=== PATIENT | female | born 1930 | race African-American/Black ===

== ENCOUNTER 2017-01-08 06:15 | Emergency (ER) | payer OTHER, BC ==
[2017-01-08 06:25] VITALS: TEMP 98.2; BMI 31.2
--- NOTE | 2017-01-08 07:34 | PDOC ---
History of Present Illness - General History Source: Patient Exam Limitations: No Limitations - History of Present Illness Initial Comments: 01/08/17 07:44 The patient is a 86 year old female with significant past medical history of hypertension, hyperlipidemia, arthritis, GERD, and achalasia who presents to the ED with 1 day of right flank pain. Patient reports she recently injured her right foot sustaining some swelling and pain to the area, which has now resolved. Subsequently, she developed pain to the right flank region and became concern if the two symptoms are related to each other. She took tylenol a few hours prior to arrival with no improvement. Patient denies fever, dysuria, hematuria, urgency, and frequency. She also denies any trauma to the area. She reports some nausea and one episode of vomiting last night. The patient denies chills, cough, SOB, chest pain, abdominal pain, and diarrhea. Allergies: Penicillins Social History: No alcohol, tobacco, or drug use reported. Past Surgical History: Achalasia ( esophageal dilatation) Left hip ORIF, right knee ORIF s/p comminuted fracture, Cholecystectomy, hysterectomy, appendectomy PCP: Dr. Ananda Archer <Meagan Gillespie - Last Filed: 01/08/17 10:36> <Jyothi Hardin - Last Filed: 01/08/17 20:28> - General Chief Complaint: Pain Stated Complaint: PAIN,RT SIDE Time Seen by Provider: 01/08/17 07:19 Past History <Meagan Gillespie - Last Filed: 01/08/17 10:36> - Past Medical History Anemia: No Asthma: No Cancer: No Cardiac Disorders: No CVA: No COPD: No CHF: No GI Disorders: Yes (echalasia; gerd) Disorders: No HTN: Yes Hypercholesterolemia: Yes Liver Disease: No Seizures: No Thyroid Disease: No - Surgical History Abdominal Surgery: No Appendectomy: No Cardiac Surgery: No Cholecystectomy: Yes Lung Surgery: No Neurologic Surgery: No Orthopedic Surgery: Yes - Psycho/Social/Smoking Cessation Hx Anxiety: No Suicidal Ideation: No Smoking Status: No Smoking History: Never smoked Have you smoked in the past 12 months: No Number of Cigarettes Smoked Daily: 0 If you are a former smoker, when did you quit?: 1969 Information on smoking cessation initiated: No Hx Alcohol Use: No Drug/Substance Use Hx: No Substance Use Type: None <Jyothi Hardin - Last Filed: 01/08/17 20:28> - Past Medical History Allergies/Adverse Reactions: Allergies Allergy/AdvReac Type Severity Reaction Status Date / Time Penicillins Allergy Severe Verified 01/08/17 06:24 Home Medications: Ambulatory Orders Atorvastatin Ca [Lipitor] 40 mg PO HS 12/15/15 Diclofenac Sodium/Misoprostol [Diclofenac-Misoprost 75-200 Tb] 1 each PO DAILY 12/15/15 Hydrochlorothiazide 0 mg PO DAILY 12/15/15 Losartan Potassium 100 mg PO DAILY 12/15/15 Buspirone HCl [Buspar -] 5 mg PO BID 01/08/17 Methocarbamol [Robaxin -] 500 mg PO BID PRN #14 tablet 01/08/17 Review of Systems - Review of Systems Able to Perform ROS?: Yes Comments:: 01/08/17 07:44 GENERAL/CONSTITUTIONAL: No fever or chills. No weakness. HEAD, EYES, EARS, NOSE AND THROAT: No change in vision. No ear pain or discharge. No sore throat. CARDIOVASCULAR: No chest pain or shortness of breath. RESPIRATORY: No cough, wheezing, or hemoptysis. GASTROINTESTINAL: +nausea, vomiting No diarrhea or constipation. GENITOURINARY: +right flank pain No dysuria, frequency, or change in urination. MUSCULOSKELETAL: No joint or muscle swelling or pain. No neck pain. SKIN: No rash NEUROLOGIC: No headache, vertigo, loss of consciousness, or change in strength/ sensation. <Meagan Gillespie - Last Filed: 01/08/17 10:36> *Physical Exam - Vital Signs Last Vital Signs Temp Pulse Resp BP Pulse Ox 98.2 F 79 20 179/100 98 01/08/17 06:24 01/08/17 06:24 01/08/17 06:24 01/08/17 06:24 01/08/17 06:24 - Physical Exam Comments: 01/08/17 07:44 GENERAL: Awake, alert, and fully oriented, in no acute distress HEAD: No signs of trauma EYES: PERRLA, EOMI, sclera anicteric, conjunctiva clear ENT: Auricles normal inspection, hearing grossly normal, nares patent, oropharynx clear without exudates. Moist mucosa NECK: Normal ROM, supple, no lymphadenopathy, JVD, or masses LUNGS: Breath sounds equal, clear to auscultation bilaterally. No wheezes, and no crackles HEART: Regular rate and rhythm, normal S1 and S2, no murmurs, rubs or gallops ABDOMEN: Soft, nontender, normoactive bowel sounds. No guarding, no rebound. No masses EXTREMITIES: Normal range of motion, no edema. No clubbing or cyanosis. No cords, erythema, or tenderness MUSCULOSKELETAL: Mild right flank tenderness NEUROLOGICAL: Cranial nerves II through XII grossly intact. Normal speech SKIN: Warm, Dry, normal turgor, no rashes or lesions noted. Mild ecchymosis at the first MTP joint. <Meagan Gillespie - Last Filed: 01/08/17 10:36> - Vital Signs Last Vital Signs Temp Pulse Resp BP Pulse Ox 98.2 F 79 20 179/100 98 01/08/17 06:24 01/08/17 06:24 01/08/17 06:24 01/08/17 06:24 01/08/17 06:24 <Jyothi Hardin - Last Filed: 01/08/17 20:28> ED Treatment Course - LABORATORY CBC & Chemistry Diagram: 01/08/17 07:40 01/08/17 07:40 <Meagan Gillespie - Last Filed: 01/08/17 10:36> - LABORATORY CBC & Chemistry Diagram: 01/08/17 07:40 01/08/17 07:40 <Jyothi Hardin - Last Filed: 01/08/17 20:28> Medical Decision Making - Medical Decision Making CT results reviewed with patient. No acute findings. Counseled her to return to ED if pain continues, worsens, or if any additional symptoms. <Jyothi Hardin - Last Filed: 01/08/17 20:28> *DC/Admit/Observation/Transfer - Attestations Scribe Attestion: 01/08/17 07:44 Documentation prepared by Meagan Gillespie, acting as medical supply technician for Jyothi Hardin MD, MD <Meagan Gillespie - Last Filed: 01/08/17 10:36> - Discharge Dispostion Admit: No <Jyothi Hardin - Last Filed: 01/08/17 20:28> Diagnosis at time of Disposition: Abdominal pain Qualifiers: Abdominal location: unspecified location Qualified Code(s): R10.9 - Unspecified abdominal pain - Discharge Dispostion Disposition: HOME Condition at time of disposition: Stable - Prescriptions Prescriptions: Methocarbamol [Robaxin -] 500 mg PO BID PRN #14 tablet PRN Reason: Muscle Spasms - Referrals Referrals: Ananda Archer MD [Primary Care Provider] - - Patient Instructions Printed Discharge Instructions: DI for Abdominal Pain-Adult Additional Instructions: RETURN TO THE ER FOR WORSENING PAIN, PERSISTENT PAIN, OR IF YOU DEVELOP VOMITING , DIARRHEA, FEVER, OR ANY OTHER CONCERNS.
[2017-01-08] MEDS ORDERED: KETOROLAC TROMETHAMINE 15 MG/ML VIAL IVPUSH ONE (07:36)
[2017-01-08] MEDS ORDERED: SODIUM CHLORIDE 1,000 ML IV STA (07:36)
[2017-01-08] MEDS ORDERED: KETOROLAC TROMETHAMINE 15 MG/ML VIAL ONE (07:42)
[2017-01-08 07:49] LABS: BASOPHIL 0.9 % (0-2.0); EOSINOPHIL 4.5 % (0-4.5); MCH 30.9 pg (25.7-33.7); MCHC 33.5 g/dl (32.0-36.0); MEAN CELL VOLUME 92.1 fl (80-96); MEAN PLT VOLUME 9.4 fl (7.5-11.1); NEUTROPHILS 70.1 % (42.8-82.8); PLATELET COUNT 208 K/MM3 (134-434); RDW 13.2 % (11.6-15.6); WHITE BLOOD COUNT 7.9 K/mm3 (4.0-10.0)
[2017-01-08 08:15] LABS: ALBUMIN 3.4 g/dl (3.4-5.0); BILIRUBIN,TOTAL 0.6 mg/dL (0.2-1.0); CALCIUM 9.1 mg/dL (8.5-10.1); CREATININE 1.1 mg/dL (0.55-1.02)
[2017-01-08 08:34] LABS: URINE APPEARANCE CLEAR; URINE BILIRUBIN NEGATIVE (NEGATIVE); URINE COLOR LTYELLOW; URINE GLUCOSE (UA) NEGATIVE (NEGATIVE); URINE KETONE NEGATIVE (NEGATIVE); URINE LEUK ESTERASE NEGATIVE (NEGATIVE); URINE NITRITE NEGATIVE (NEGATIVE); URINE PROTEIN NEGATIVE (NEGATIVE); URINE UROBILINOGEN NEGATIVE E.U./dl (0.2-1.0)
[2017-01-08 08:57] LABS: URINE BLOOD 1+ (NEGATIVE)
[2017-01-08 08:59] LABS: URINE HYALINE CAST 20 /lpf; URINE MUCUS RARE; URINE RBC 6 /hpf (0-3); URINE WBC 2 /hpf (3-5)
[2017-01-08] MEDS ORDERED: morphine CARPU-JECT 2 MG/1 ML DISP.SYRIN ONE (09:32)
[2017-01-08] MEDS ORDERED: morphine CARPU-JECT 2 MG/1 ML DISP.SYRIN IVPUSH ONE (09:33)
[2017-01-08] MEDS ORDERED: ONDANSETRON 4 MG/2 ML VIAL ONE (09:37)
[2017-01-08] MEDS ORDERED: ONDANSETRON 4 MG/2 ML VIAL IVPUSH ONE (09:54)
[2017-01-08] MEDS ORDERED: METHOCARBAMOL 500 MG TABLET PO ONE (11:29)
[2017-01-08] MEDS ORDERED: METHOCARBAMOL 500 MG TABLET ONE (11:32)
[2017-01-08 11:41] VITALS: BP 140/63; PULSE 70
== END 2017-01-08 11:41 | disposition home or self-care (01) ==
LOC: JER 06:15
PROC: 3E0337Z Introduction of Electrolytic and Water Balance Substance into Peripheral Vein, Percutaneous Approach (ICD-10-PCS; principal; 2017-01-08)
PROC: 3E033NZ Introduction of Analgesics, Hypnotics, Sedatives into Peripheral Vein, Percutaneous Approach (ICD-10-PCS; 2017-01-08)
PROC: 3E033GC Introduction of Other Therapeutic Substance into Peripheral Vein, Percutaneous Approach (ICD-10-PCS; 2017-01-08)
DX: R10.9 Unspecified abdominal pain (principal); I10 Essential (primary) hypertension; E78.00 Pure hypercholesterolemia, unspecified; K21.9 Gastro-esophageal reflux disease without esophagitis; M12.9 Arthropathy, unspecified
CPT/HCPCS: 36415; 74176; 80053; 81003; 81015; 83690; 85025; 96361; 96374; 96375; 99284-25

== ENCOUNTER 2017-06-18 14:07 | Emergency (ER) | payer OTHER, BC ==
[2017-06-18 14:14] VITALS: TEMP 98.6; BMI 31.2
[2017-06-18 15:07] VITALS: BP 158/92; PULSE 76
--- NOTE | 2017-06-18 15:14 | PDOC ---
History of Present Illness - General Chief Complaint: Blood Pressure Problem Stated Complaint: HIGH BLOOD PRESSURE Time Seen by Provider: 06/18/17 14:25 - History of Present Illness Initial Comments: 06/18/17 15:04 CHIEF COMPLAINT: blood pressure HISTORY OF PRESENT ILLNESS: 87 yo F with past medical history of hypertension, hyperlipidemia, arthritis, GERD, and achalasia presents to fast track with concerns of elevated blood pressure earlier today. Patient states when she took her BP at home this morning it was in the 192/87, so she decided to come to the emergency room. She denies having any symptoms, including chest pain, shortness of breath, weakness, abdominal pain, headache, dizziness, leg swelling , or palpitations. She states that "I think I have been having anxiety lately" and reports that her almost a year ago, and since then she has been having episodes of anxiety as well as episodes of loneliness. She states "I live in a coop and my son lives across the street, and my cousin downstairs, but you know, no one can replace your spouse." PAST MEDICAL HISTORY:as per HPI ALLERGIES: PCN REVIEW OF SYSTEMS General/Constitutional: Denies fever or chills. Denies weakness, weight change. HEENT: Denies change in vision. Denies ear pain or discharge. Denies sore throat. Cardiovascular: Denies chest pain or shortness of breath. Respiratory: Denies cough, wheezing, or hemoptysis. Gastrointestinal: Denies nausea, vomiting, diarrhea or constipation. Denies rectal bleeding. Genitourinary: Denies dysuria, frequency, or change in urination. Musculoskeletal: Denies joint or muscle swelling or pain. Denies neck or back pain. Skin and breasts: Denies rash or easy bruising. Neurologic: Denies headache, vertigo, loss of consciousness, or loss of sensation. PHYSICAL EXAM General Appearance: Well-appearing, appropriately dressed. No apparent distress , no intoxication. HEENT: EOMI, PERRLA, normal ENT inspection, normal voice, TMs normal, pharynx normal. No conjunctival pallor. No photophobia, scleral icterus. Neck: Supple. Trachea midline. No tenderness, rigidity, carotid bruit, stridor , lymphadenopathy, or thyromegaly. Respiratory/Chest: Lungs CTAB. No shortness of breath, chest tenderness, respiratory distress, accessory muscle use. No crackles, rales, rhonchi, stridor , wheezing, dullness Cardiovascular: RRR. S1, S2. No JVD, murmur, bradycardia, tachycardia. Vascular Pulses: Dorsalis-Pedis (R): 2+, Dorsalis-Pedis (L): 2+ Gastrointestinal/Abdominal: Normal bowel sounds. Abdomen soft, non-distended. No tenderness or rebound tenderness. No organomegaly, pulsatile mass, guarding , hernia, hepatomegaly, splenomegaly. Lymphatic: No adenopathy, tenderness. Musculoskeletal/Extremities: Normal inspection. FROM of all extremities, normal capillary refill. Pelvis Stable. No CVA tenderness. No tenderness to extremities, pedal edema, swelling, erythema or deformity. Integumentary: Appropriate color, dry, warm. No cyanosis, erythema, jaundice or rash Neurologic: freight associate II-XII intact. Fully oriented, alert. Appropriate mood/affect. Motor strength 5/5. No appreciable EOM palsy, facial droop or sensory deficit. Past History - Past Medical History Allergies/Adverse Reactions: Allergies Allergy/AdvReac Type Severity Reaction Status Date / Time Penicillins Allergy Severe Verified 06/18/17 14:14 Home Medications: Ambulatory Orders Atorvastatin Ca [Lipitor] 40 mg PO HS 12/15/15 Diclofenac Sodium/Misoprostol [Diclofenac-Misoprost 75-200 Tb] 1 each PO DAILY 12/15/15 Hydrochlorothiazide 0 mg PO DAILY 12/15/15 Losartan Potassium 100 mg PO DAILY 12/15/15 Buspirone HCl [Buspar -] 5 mg PO BID 01/08/17 Methocarbamol [Robaxin -] 500 mg PO BID PRN #14 tablet 01/08/17 Anemia: No Asthma: No Cancer: No Cardiac Disorders: No CVA: No COPD: No CHF: No GI Disorders: Yes (echalasia; gerd) Disorders: No HTN: Yes Hypercholesterolemia: Yes Liver Disease: No Seizures: No Thyroid Disease: No - Surgical History Abdominal Surgery: No Appendectomy: No Cardiac Surgery: No Cholecystectomy: Yes Lung Surgery: No Neurologic Surgery: No Orthopedic Surgery: Yes - Psycho/Social/Smoking Cessation Hx Anxiety: No Suicidal Ideation: No Smoking Status: No Smoking History: Never smoked Have you smoked in the past 12 months: No Number of Cigarettes Smoked Daily: 0 If you are a former smoker, when did you quit?: 1969 Hx Alcohol Use: No Drug/Substance Use Hx: No Substance Use Type: None *Physical Exam - Vital Signs Last Vital Signs Temp Pulse Resp BP Pulse Ox 98.6 F 81 20 164/85 97 06/18/17 14:10 06/18/17 14:10 06/18/17 14:10 06/18/17 14:10 06/18/17 14:10 Medical Decision Making - Medical Decision Making 06/18/17 15:14 87 yo F with past medical history of hypertension, hyperlipidemia, arthritis, GERD, and achalasia presents to fast track with concerns of elevated blood pressure earlier today. Patient VS stable in triage, BP 164/85. Discussed with patient that therapy may help with her intermittent feelings of anxiety and loneliness. Patient states she has discussed these feelings with her PCP who did prescribe her some anti anxiety medications, but she did not take them today. She states that she will make a follow up appointment with her PCP sooner to further discuss these issues. 06/18/17 15:14 Patient repeat BP 158/92. Patient well appearing and in no apparent distress, and continues to be asymptomatic throughout entire exam. *DC/Admit/Observation/Transfer Diagnosis at time of Disposition: Anxiety - Discharge Dispostion Disposition: HOME Condition at time of disposition: Stable Admit: No - Referrals Referrals: Ananda Archer MD [Primary Care Provider] - - Patient Instructions Printed Discharge Instructions: DI for High Blood Pressure Additional Instructions: You do not have to take your blood pressure multiple times a day. Try just taking it once a day, at the same time each day. Please follow up with Dr. Archer regarding your feelings of anxiety and loneliness within the next 1-2 weeks. If you experience any chest pain, shortness of breath, headache, weakness, cough, fever, vomiting, diarrhea, overwhelming feelings of anxiety, sadness, suicidal ideation, or any new or worsening symptoms, please return to the ER immediately.
== END 2017-06-18 15:43 | disposition home or self-care (01) ==
LOC: JERFT 14:07
DX: F41.8 Other specified anxiety disorders (principal); I10 Essential (primary) hypertension; E78.5 Hyperlipidemia, unspecified; K21.9 Gastro-esophageal reflux disease without esophagitis; K22.0 Achalasia of cardia; M12.9 Arthropathy, unspecified
CPT/HCPCS: 99281-25

== ENCOUNTER 2017-10-04 10:50 | Emergency (ER) | payer OTHER, BC ==
[2017-10-04 10:59] VITALS: TEMP 98; BMI 30.9
--- NOTE | 2017-10-04 12:38 | PDOC ---
History of Present Illness - General History Source: Patient - History of Present Illness Initial Comments: 10/04/17 12:38 87F with pmh of hypertension, hyperlipidemia, arthritis, GERD, and achalasia presents with 2 days of productive clear cough and episode of diaphoresis where she sweat so much she had to change her shirt. No chest pain or shortness of breath. Patient has limited mobility due to chronic pain in her right shoulder and hip for which she has appointments scheduled with Dr. Mcduffie. Vaccinated for the flu this year. Has had history of walking pneumonia. PCP Dr. Archer. <Deny Yi - Last Filed: 10/04/17 13:37> <Del Maria - Last Filed: 10/04/17 16:52> - General Chief Complaint: Cold Symptoms Stated Complaint: COLD, SWEATS Time Seen by Provider: 10/04/17 12:23 Past History - Past Medical History Anemia: No Asthma: No Cancer: No Cardiac Disorders: No CVA: No COPD: No CHF: No DVT: No GI Disorders: Yes (echalasia; gerd) Disorders: No HTN: Yes Hypercholesterolemia: Yes Liver Disease: No Seizures: No Thyroid Disease: No - Surgical History Abdominal Surgery: No Appendectomy: No Cardiac Surgery: No Cholecystectomy: Yes Lung Surgery: No Neurologic Surgery: No Orthopedic Surgery: Yes - Immunization History Immunization Up to Date: Yes - Suicide/Smoking/Psychosocial Hx Smoking Status: No Smoking History: Never smoked Have you smoked in the past 12 months: No Number of Cigarettes Smoked Daily: 0 If you are a former smoker, when did you quit?: 1969 Information on smoking cessation initiated: No Hx Alcohol Use: No Drug/Substance Use Hx: No Substance Use Type: None <Deny Yi - Last Filed: 10/04/17 13:37> <Del Maria - Last Filed: 10/04/17 16:52> - Past Medical History Allergies/Adverse Reactions: Allergies Allergy/AdvReac Type Severity Reaction Status Date / Time Penicillins Allergy Severe Verified 10/04/17 10:54 Home Medications: Ambulatory Orders Atorvastatin Ca [Lipitor] 40 mg PO HS 12/15/15 Diclofenac Sodium/Misoprostol [Diclofenac-Misoprost 75-200 Tb] 1 each PO DAILY 12/15/15 Hydrochlorothiazide 0 mg PO DAILY 12/15/15 Losartan Potassium 100 mg PO DAILY 12/15/15 Buspirone HCl [Buspar -] 5 mg PO BID 01/08/17 Methocarbamol [Robaxin -] 500 mg PO BID PRN #14 tablet 01/08/17 Review of Systems - Review of Systems Constitutional: Yes: See HPI HEENTM: Yes: Nose Congestion. No: Symptoms Reported Respiratory: Yes: Cough, Productive cough. No: Shortness of Breath Cardiac (ROS): No: Symptoms Reported ABD/GI: No: Symptoms Reported : No: Symptoms Reported Musculoskeletal: Yes: Joint Pain Integumentary: No: Symptoms Reported Neurological: No: Symptoms reported All Other Systems: Reviewed and Negative <Deny Yi - Last Filed: 10/04/17 13:37> *Physical Exam - Vital Signs Last Vital Signs Temp Pulse Resp BP Pulse Ox 98.0 F 79 18 186/76 97 10/04/17 10:54 10/04/17 10:54 10/04/17 10:54 10/04/17 10:54 10/04/17 10:54 - Physical Exam General Appearance: Yes: Nourished, Appropriately Dressed, Mild Distress (due to joint pain) HEENT: positive: Other (arcuate senilis) Neck: negative: Tender Respiratory/Chest: positive: Crackles (lower left field). negative: Chest Tender Cardiovascular: positive: Irregular Gastrointestinal/Abdominal: positive: Normal Bowel Sounds, Soft. negative: Tender <Deny Yi - Last Filed: 10/04/17 13:37> - Vital Signs Last Vital Signs Temp Pulse Resp BP Pulse Ox 98.0 F 79 18 186/76 97 10/04/17 10:54 10/04/17 10:54 10/04/17 10:54 10/04/17 10:54 10/04/17 13:10 <Del Maria - Last Filed: 10/04/17 16:52> ED Treatment Course - RADIOLOGY Radiology Studies Ordered: Category Date Time Status CHEST X-RAY PORTABLE* [RAD] Stat Radiology 10/04/17 12:30 Ordered <Deny Yi - Last Filed: 10/04/17 13:37> - LABORATORY CBC & Chemistry Diagram: 10/04/17 13:09 10/04/17 13:09 - ADDITIONAL ORDERS Additional order review: Laboratory Results 10/04/17 10/04/17 10/04/17 14:36 14:36 13:09 Sodium 139 Potassium 4.4 Chloride 103 Carbon Dioxide 29 Anion Gap 7 L BUN 8 D Creatinine 0.6 D Creat Clearance w eGFR > 60 Random Glucose 90 Calcium 8.6 Total Bilirubin 0.8 D AST 42 H D ALT 23 D Alkaline Phosphatase 68 Troponin I 0.02 Total Protein 7.2 Albumin 2.9 L Urine Color Straw Urine Appearance Clear Urine pH 7.0 D Ur Specific Stacy 1.009 Urine Protein Negative Urine Glucose (UA) Negative Urine Ketones Negative Urine Blood Negative Urine Nitrite Negative Urine Bilirubin Negative Urine Urobilinogen Negative 10/04/17 13:08 Influenza Types A,B Antigen (CLAUS) - Final Nasopharyngeal Swab - Final 10/04/17 13:09 RBC 4.43 MCV 91.4 MCHC 32.7 RDW 13.5 MPV 9.6 Neutrophils % 52.8 D Lymphocytes % 33.1 D Monocytes % 7.8 D Eosinophils % 4.5 Basophils % 1.8 <Del Maria - Last Filed: 10/04/17 16:52> Medical Decision Making - Medical Decision Making 10/04/17 13:02 87F with pmh of hypertension, hyperlipidemia, arthritis, GERD, and achalasia presents with 2 days of productive clear cough and episode of diaphoresis cbc, cmp, flu swab, cxr, trops and EKG <Deny Yi - Last Filed: 10/04/17 13:37> *DC/Admit/Observation/Transfer <Deny Yi - Last Filed: 10/04/17 13:37> - Discharge Dispostion Admit: No <Del Maria - Last Filed: 10/04/17 16:52> Diagnosis at time of Disposition: URI (upper respiratory infection) Qualifiers: URI type: unspecified viral URI Qualified Code(s): J06.9 - Acute upper respiratory infection, unspecified; B97.89 - Other viral agents as the cause of diseases classified elsewhere; B97.89 - Other viral agents as the cause of diseases classified elsewhere - Discharge Dispostion Disposition: HOME - Referrals Referrals: Ananda Archer MD [Primary Care Provider] - - Patient Instructions Printed Discharge Instructions: DI for Viral Upper Respiratory Infection -- Adult Additional Instructions: Drink plenty of fluids. Take [id number] Mucinex as directed on package. Follow-up with her doctor in 1-2 days. Return to the emergency department for any severe worsening symptoms or for any concerns - Post Discharge Activity
[2017-10-04 14:01] LABS: BASOPHIL 1.8 % (0-2.0); EOSINOPHIL 4.5 % (0-4.5); MCH 29.9 pg (25.7-33.7); MCHC 32.7 g/dl (32.0-36.0); MEAN CELL VOLUME 91.4 fl (80-96); MEAN PLT VOLUME 9.6 fl (7.5-11.1); NEUTROPHILS 52.8 % (42.8-82.8); PLATELET COUNT 180 K/MM3 (134-434); RDW 13.5 % (11.6-15.6); WHITE BLOOD COUNT 4.6 K/mm3 (4.0-10.0)
--- NOTE | 2017-10-04 14:16 | PDOC ---
Attending Attestation - HPI HPI: 10/04/17 14:49 The patient is a 87 year old female, with a significant past medical history of HTN, HLD, GERD, Achalasia, Arthritis who presents to the emergency department with cold like symptoms for the past week. Patient reports waking up this morning feeling wet from sweating all night. Patient also endorses a dry cough however denies any fevers,nausea or vomiting. Patient also notes R shoulder pain and R hip pain secondary to her arthritis. Patient denies any SOB or chest pain. - Physicial Exam PE: 10/04/17 14:49 Vitals: Triage Vital signs reviewed General Appearance: no acute distress, well nourished well developed, Head: Atraumatic, normocephalic Neck: Supple;No Nuchal rigidity Chest Wall: Nontender Cardiac: Regular rate and rhythm, no murmurs, no rubs, no gallops, Lungs: +Crackles on L base. Good air movement bilaterally, Abdomen: Soft, nondistended, normal bowel sounds, nontender to palpation Extremities: Full range of motion to all extremities, no cyanosis, clubbing, or edema Skin: Warm and dry, no rashes or lesions, no petechiae - Medical Decision Making 10/04/17 14:49 Documentation prepared by Jodie Gonsalez, acting as medical secretary for Del Maria MD ECG Reviewed by Crow Lafleur. rate 70 bpm Sinus Rhthym with 1st degree AV block with occasional premature ventricular complexes L ventricular hypertrophy with repolarization abnormality Abnormal ECG <Jodie Gonsalez - Last Filed: 10/04/17 16:46> - Resident Resident Name: Deny Yi - ED Attending Attestation I have performed the following: I have examined & evaluated the patient, The case was reviewed & discussed with the resident, I agree w/resident's findings & plan, Exceptions are as noted - Medical Decision Making Well-appearing no apparent distress. Stable vital signs no acute findings on laboratory analysis her chest x-ray. History and examination most consistent with viral upper respiratory illness. Recommend continuing Mucinex she'll follow -up with her PCP today or tomorrow. She'll return to the emergency department for any severe worsening symptoms or for any concerns. <Del Maria - Last Filed: 10/04/17 19:18>
[2017-10-04 14:26] LABS: ALBUMIN 2.9 g/dl (3.4-5.0); ANION GAP 7 (8-16); BILIRUBIN,TOTAL 0.8 mg/dL (0.2-1.0); CALCIUM 8.6 mg/dL (8.5-10.1); CO2 29 mmol/L (21-32); CREATININE 0.6 mg/dL (0.55-1.02); GLUCOSE,RANDOM 90 mg/dL (74-106); SGPT/ALT 23 U/L (12-78); TOT PROT 7.2 g/dl (6.4-8.2)
[2017-10-04 14:27] LABS: ALK PHOS 68 U/L (45-117)
[2017-10-04 14:47] LABS: SGOT/AST 42 U/L (15-37)
[2017-10-04 14:58] LABS: URINE APPEARANCE CLEAR; URINE BILIRUBIN NEGATIVE (NEGATIVE); URINE BLOOD NEGATIVE (NEGATIVE); URINE COLOR STRAW; URINE GLUCOSE (UA) NEGATIVE (NEGATIVE); URINE KETONE NEGATIVE (NEGATIVE); URINE NITRITE NEGATIVE (NEGATIVE); URINE PROTEIN NEGATIVE (NEGATIVE); URINE UROBILINOGEN NEGATIVE mg/dL (0.2-1.0)
--- NOTE | 2017-10-04 15:25 | EKG ---
Test Reason : Blood Pressure : / mmHG Vent. Rate : 070 BPM Atrial Rate : 070 BPM P-R Int : 272 ms QRS Dur : 082 ms QT Int : 414 ms P-R-T Axes : 053 -16 -15 degrees QTc Int : 447 ms SINUS RHYTHM WITH 1ST DEGREE A-V BLOCK WITH OCCASIONAL PREMATURE VENTRICULAR COMPLEXES LEFT VENTRICULAR HYPERTROPHY WITH REPOLARIZATION ABNORMALITY BASELINE ARTIFACT ABNORMAL ECG WHEN COMPARED WITH ECG OF 15-DEC-2015 12:41, PREMATURE VENTRICULAR COMPLEXES ARE NOW PRESENT REPEAT EKG IF CLINICALLY INDICATED Confirmed by PORTILLO TAYLOR MD ([id number]) on 10/04/2017 3:25:01 PM Referred By: Confirmed By:PORTILLO TAYLOR MD
[2017-10-04 16:55] VITALS: BP 163/74; PULSE 84
[2017-10-04 17:35] LABS: URINE LEUK ESTERASE Negative (NEGATIVE)
== END 2017-10-04 17:00 | disposition home or self-care (01) ==
LOC: JER 10:50
DX: J06.9 Acute upper respiratory infection, unspecified (principal); B97.89 Other viral agents as the cause of diseases classified elsewhere; I10 Essential (primary) hypertension; E78.00 Pure hypercholesterolemia, unspecified; K21.9 Gastro-esophageal reflux disease without esophagitis; K22.0 Achalasia of cardia; M12.9 Arthropathy, unspecified; M25.511 Pain in right shoulder; M25.551 Pain in right hip; G89.29 Other chronic pain
CPT/HCPCS: 36415; 71010-TC; 80053; 81003; 84484; 85025; 87804; 93005; 93010; 99283-25

== ENCOUNTER 2017-12-10 11:10 | Emergency (ER) | payer OTHER, BC ==
[2017-12-10 11:20] VITALS: PULSE 80; TEMP 98.6; BMI 29.2
--- NOTE | 2017-12-10 11:59 | PDOC ---
History of Present Illness - General Chief Complaint: Blood Pressure Problem Stated Complaint: BLOOD PRESSURE PROBLEM Time Seen by Provider: 12/10/17 11:34 History Source: Patient Exam Limitations: No Limitations - History of Present Illness Initial Comments: 12/10/17 11:54 87 yr female with c/o elevated blood pressure this AM with her manual machine at home. Pt states she has been suffering with anxiety over the loss of 2 yrs ago, is worse at night because she is alone. Her son lives across the street and her cousin is down the [address] in her apt building. 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 Pt has no headache , no chest pain no dizzyness. pt denies suicidal or homicidal thoughts. Severity: mild Past History - Past Medical History Allergies/Adverse Reactions: Allergies Allergy/AdvReac Type Severity Reaction Status Date / Time Penicillins Allergy Severe Verified 12/10/17 11:13 Home Medications: Ambulatory Orders Atorvastatin Ca [Lipitor] 40 mg PO HS 12/15/15 Diclofenac Sodium/Misoprostol [Diclofenac-Misoprost 75-200 Tb] 1 each PO DAILY 12/15/15 Hydrochlorothiazide 0 mg PO DAILY 12/15/15 Losartan Potassium 100 mg PO DAILY 12/15/15 Buspirone HCl [Buspar -] 5 mg PO BID 01/08/17 Methocarbamol [Robaxin -] 500 mg PO BID PRN #14 tablet 01/08/17 Anemia: No Asthma: No Cancer: No Cardiac Disorders: No CVA: No COPD: No CHF: No DVT: No GI Disorders: Yes (echalasia; gerd) Disorders: No HTN: Yes Hypercholesterolemia: Yes Liver Disease: No Seizures: No Thyroid Disease: No - Surgical History Abdominal Surgery: No Appendectomy: No Cardiac Surgery: No Cholecystectomy: Yes Lung Surgery: No Neurologic Surgery: No Orthopedic Surgery: Yes - Immunization History Immunization Up to Date: Yes - Suicide/Smoking/Psychosocial Hx Smoking Status: No Smoking History: Never smoked Have you smoked in the past 12 months: No Number of Cigarettes Smoked Daily: 0 If you are a former smoker, when did you quit?: 1969 Information on smoking cessation initiated: No Hx Alcohol Use: No Drug/Substance Use Hx: No Substance Use Type: None Review of Systems - Review of Systems Able to Perform ROS?: Yes Is the patient limited Romanian proficient: No Constitutional: No: Symptoms Reported HEENTM: No: Symptoms Reported Respiratory: No: Symptoms reported Cardiac (ROS): No: Symptoms Reported ABD/GI: No: Symptoms Reported : No: Symptoms Reported Musculoskeletal: Yes: See HPI Integumentary: No: Symptoms Reported Neurological: No: Symptoms reported *Physical Exam - Vital Signs Last Vital Signs Temp Pulse Resp BP Pulse Ox 98.6 F 80 18 189/78 100 12/10/17 11:14 12/10/17 11:14 12/10/17 11:14 12/10/17 11:14 12/10/17 11:14 - Physical Exam General Appearance: Yes: Nourished, Appropriately Dressed HEENT: positive: EOMI, NIHARIKA, Normal ENT Inspection, TMs Normal, Pharynx Normal Neck: positive: Supple. 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 I have discussed with pt too follow with her PMD on tuesday to return to ER for any worsening symptoms 12/10/17 12:03 12/10/17 12:08 *DC/Admit/Observation/Transfer Diagnosis at time of Disposition: Hypertension Qualifiers: Hypertension type: essential hypertension Qualified Code(s): I10 - Essential ( primary) hypertension - Discharge Dispostion Disposition: HOME Condition at time of disposition: Good - Referrals Referrals: Ananda Archer MD [Primary Care Provider] - - Patient Instructions Printed Discharge Instructions: DI for High Blood Pressure Additional Instructions: follow with your doctor on Tuesday to discuss anxiety at home you can try melatonin to help sleep (over the counter ) continue taking your medications as prescribed return to the ER for any worsening symptoms - Post Discharge Activity
[2017-12-10 12:07] VITALS: BP 162/76
== END 2017-12-10 12:14 | disposition home or self-care (01) ==
LOC: JERFT 11:10
DX: I10 Essential (primary) hypertension (principal); E78.00 Pure hypercholesterolemia, unspecified; K21.9 Gastro-esophageal reflux disease without esophagitis; F41.9 Anxiety disorder, unspecified
CPT/HCPCS: 99281-25

== ENCOUNTER 2018-08-25 22:06 | Emergency (ER) | payer OTHER, BC ==
[2018-08-25 22:20] VITALS: BP 160/84; PULSE 91; TEMP 98.8; BMI 30.9
--- NOTE | 2018-08-26 00:28 | PDOC ---
History of Present Illness - General Chief Complaint: Nausea/Vomiting Stated Complaint: ANXIETY Time Seen by Provider: 08/25/18 23:33 History Source: Patient, Old Records Exam Limitations: No Limitations - History of Present Illness Initial Comments: 88 y/o female presenting to [facility] ER via private auto complaining of nausea/ vomiting since mid-day today. Pt reports 5-6 episodes of clear, nonbloody, nonbilious emesis starting just before lunch today, last episode approx. 9pm. Denies abdominal pain, diarrhea, fever, chills, or diaphoresis. Symptoms resolved prior to arrival this evening. Pt lives alone. Pt endorses remove history of esophageal surgery in the 1960s. She is unable to elaborate on the type, but believes it was because of solid food becoming stuck while eating. PCP: Randell Stevens Hx: - HTN - GERD Surgical Hx: - Cholecystectomy, 2004 - L Hip replacement, 2015 - R Knee replacement - Esophageal Surgery, unknown type, 1960s 08/26/18 04:23 Past History - Past Medical History Allergies/Adverse Reactions: Allergies Allergy/AdvReac Type Severity Reaction Status Date / Time Penicillins Allergy Severe Verified 12/10/17 11:13 Home Medications: Ambulatory Orders Atorvastatin Ca [Lipitor] 40 mg PO HS 12/15/15 Diclofenac Sodium/Misoprostol [Diclofenac-Misoprost 75-200 Tb] 1 each PO DAILY 12/15/15 Hydrochlorothiazide 0 mg PO DAILY 12/15/15 Losartan Potassium 100 mg PO DAILY 12/15/15 Buspirone HCl [Buspar -] 5 mg PO BID 01/08/17 Methocarbamol [Robaxin -] 500 mg PO BID PRN #14 tablet 01/08/17 Anemia: No Asthma: No Cancer: No Cardiac Disorders: No CVA: No COPD: No CHF: No DVT: No GI Disorders: Yes (echalasia; gerd) Disorders: No HTN: Yes Hypercholesterolemia: Yes Liver Disease: No Seizures: No Thyroid Disease: No - Surgical History Abdominal Surgery: No Appendectomy: No Cardiac Surgery: No Cholecystectomy: Yes Lung Surgery: No Neurologic Surgery: No Orthopedic Surgery: Yes - Immunization History Immunization Up to Date: Yes - Suicide/Smoking/Psychosocial Hx Smoking Status: No Smoking History: Never smoked Have you smoked in the past 12 months: No Number of Cigarettes Smoked Daily: 0 If you are a former smoker, when did you quit?: 1970 Hx Alcohol Use: No Drug/Substance Use Hx: No Substance Use Type: None Review of Systems - Review of Systems Able to Perform ROS?: Yes Comments:: In addition to that documented in the HPI above, the additional ROS was obtained : Constitutional: Denies fevers or chills Eyes: Denies vision changes ENMT: Denies sore throat CV: Denies chest pain Resp: Denies SOB GI: Per HPI *Physical Exam - Vital Signs Last Vital Signs Temp Pulse Resp BP Pulse Ox 98.8 F 91 H 18 160/84 97 08/25/18 22:14 08/25/18 22:14 08/25/18 22:14 08/25/18 22:14 08/25/18 22:14 - Physical Exam Comments: Constitutional: Well-developed, well-nourished female in no acute distress or obvious discomfort. Found sitting upright on edge of bed. Alert and oriented x4. Answered all questions appropriately and completely. HEENT: Normocephalic. No obvious external signs of trauma. Hearing grossly normal. No nasal discharge. Moist mucosal membranes. Neck is supple, trachea is midline. Cardiovascular: Regular rate and regular rhythm. No murmur, rubs, clicks, or gallops. Peripheral pulses: Radial pulses full. Respiratory: Breathing unlabored. Equal chest rise and fall. Clear to auscultation bilaterally. No stridor, no wheezing, no rhonchi. Gastrointestinal: abdomen is soft, non-tender, non-distended. Neuro: Alert and oriented. Moving all four extremities spontaneously. Gait normal, observed walking with cane through department. Skin: Warm, dry, and intact. No bruising, rashes, or other lesions. No palpable nodules. : No CVA tenderness. Psych: Affect: appropriate. Mood: normal. Medical Decision Making - Medical Decision Making *Reviewed vital signs, nursing notes, and prior visit documentation (if available). 88 y/o female complaining of resolved nausea/vomiting. Afebrile. Vitals unremarkable for tachycardia or hypotension. At time of interview, the pt decided it was too late at night for her to wait for blood results. She further stated that she felt better and would like to go home. Discussed that leaving at this juncture was against medical advice as a workup had not been initiated. Pt expressed verbal understanding and stated that she would return in the morning if she felt like her symptoms required additional emergency care. 00:29 Pt signed AMA form and left the department without further incident. *DC/Admit/Observation/Transfer Diagnosis at time of Disposition: Nausea & vomiting - Discharge Dispostion Disposition: AGAINST MEDICAL ADVICE Condition at time of disposition: Stable Decision to Admit order: No - Referrals Referrals: Ananda Archer MD [Primary Care Provider] - - Patient Instructions Printed Discharge Instructions: DI for Vomiting -- Adult Additional Instructions: You have chosen to leave the emergency department prior to completion of your evaluation. This is against medical advice. We are unable to provide further advice. Please follow up with your primary care doctor within the next 2-3 days if your symptoms continue. You should come back to the emergency department if your condition worsens or you feel like you need an additional emergency evaluation. Print Language: CHINESE - Post Discharge Activity
== END 2018-08-26 00:33 | disposition left against medical advice (07) ==
LOC: JER 22:06
DX: R11.2 Nausea with vomiting, unspecified (principal); I10 Essential (primary) hypertension; K21.9 Gastro-esophageal reflux disease without esophagitis; Z96.642 Presence of left artificial hip joint; Z96.651 Presence of right artificial knee joint; Z90.49 Acquired absence of other specified parts of digestive tract
CPT/HCPCS: 99281-25

== ENCOUNTER 2020-02-10 23:16 | Emergency (ER) | payer OTHER, BC ==
[2020-02-10 23:28] VITALS: BMI 35.2
--- NOTE | 2020-02-10 23:50 | PDOC ---
History of Present Illness - General Chief Complaint: Blood Pressure Problem Stated Complaint: BLOOD PRESSURE PROBLEM Time Seen by Provider: 02/10/20 23:30 - History of Present Illness Initial Comments: Naty Douglas is an 89yo with a PMH of HTN, HLD, arthritis, GERD, achalasia who presents reporting elevated blood pressure at home tonight. She states that she was straining to open a window, stood up, and felt dizzy. Due to the dizziness, she checked her BP at home several times. she reports that "the top number was over 200 every time," so she became concerned. She does not normally check her BP at home; she states that it is "normally low." Ms Douglas states that she used to take losartan 100mg and hydrochlorothiazide 12.5mg (per an old med list) but was told by her PMD to stop taking them. She denies any chest pain, difficulty breathing, changes in urination, AMS, changes in vision, changes in urination, LOCKETT, or other symptoms associated with the hypertension. Past History - Past Medical History Allergies/Adverse Reactions: Allergies Allergy/AdvReac Type Severity Reaction Status Date / Time Penicillins Allergy Severe Verified 02/10/20 23:25 Home Medications: Ambulatory Orders Atorvastatin Ca [Lipitor] 40 mg PO HS 12/15/15 Diclofenac Sodium/Misoprostol [Diclofenac-Misoprost 75-200 Tb] 1 each PO DAILY 12/15/15 Hydrochlorothiazide 0 mg PO DAILY 12/15/15 Losartan Potassium 100 mg PO DAILY 12/15/15 Buspirone HCl [Buspar -] 5 mg PO BID 01/08/17 Methocarbamol [Robaxin -] 500 mg PO BID PRN #14 tablet 01/08/17 Anemia: No Asthma: No Cancer: No Cardiac Disorders: No CVA: No COPD: No CHF: No DVT: No GI Disorders: Yes (echalasia; gerd) Disorders: No HTN: Yes Hypercholesterolemia: Yes Liver Disease: No Seizures: No Thyroid Disease: No - Surgical History Abdominal Surgery: No Appendectomy: No Cardiac Surgery: No Cholecystectomy: Yes Lung Surgery: No Neurologic Surgery: No Orthopedic Surgery: Yes - Immunization History Immunization Up to Date: Yes - Psycho Social/Smoking Cessation Hx Smoking Status: No Smoking History: Never smoked Have you smoked in the past 12 months: No Number of Cigarettes Smoked Daily: 0 If you are a former smoker, when did you quit?: 1970 Hx Alcohol Use: No Drug/Substance Use Hx: No Substance Use Type: None Review of Systems - Review of Systems Comments:: General: No fevers, no chills, no weight or appetite change, no malaise HEENT: No changes in vision, no changes in hearing, no congestion, no sore throat CV: No chest pain, no palpitations, no LE edema Pulm: No SOB, no cough, no wheezing GI: No nausea or vomiting, no change in bowel habits, no melena : No frequency, no urgency, no dysuria Musc: No back pain, no joint swelling, no recent injury Skin: No rash, no lesions, no erythema Endo: No excessive thirst, no heat/cold intolerance Heme: No unusual bruising or bleeding, no swollen glands Neuro: No syncope, no numbness/tingling, no focal weakness Vasc: No claudication Psych: No recent change in mood, no SI or HI *Physical Exam - Vital Signs Last Vital Signs Temp Pulse Resp BP Pulse Ox 98.1 F 86 20 202/82 H 100 02/10/20 23:39 02/10/20 23:26 02/10/20 23:26 02/10/20 23:26 02/10/20 23:26 - Physical Exam General: Comfortable, no acute distress HEENT: Atraumatic, PERRL, EOMI, MMM, voice normal, normal neck ROM Cards: RRR, no murmur appreciated Pulm: Comfortable on room air, clear to auscultation bilaterally Abd: Soft, nontender, nondistended Ext: Atraumatic. Moves all extremities. No pitting LE edema, 2+ nonpitting edema at b/l ankles Neuro: A&Ox3, CN grossly intact, normal speech, motor/sensory grossly intact and symmetric, no focal deficits Psych: Mood appropriate to situation ED Treatment Course - LABORATORY CBC & Chemistry Diagram: 02/11/20 00:41 02/11/20 00:41 Medical Decision Making - Medical Decision Making 02/10/20 23:49 Naty Douglas is an 89yo with a PMH of HTN, HLD, arthritis, GERD, achalasia who presents with dizziness and HTN to 260 systolic at home tonight. - HTN to 202/82 on arrival. Pt reports SBP to 260 at home. Not on meds at home - HTN urgency v emergency. Reports dizziness at home but no additional end organ damage identified - Initial oral temp in triage recorded as 100F, but repeat at bedside 98.1. No infectious symptoms, likely afebrile - CBC, CMP, trop, EKG, CXR - Was on losartan 100mg at home. Will give 50mg and recheck BP 02/11/20 01:20 - EKG w/ sinus rhythm, HR 80, 1st degree block with OK 300, left axis. No t-wave or ST abnormalities - CXR without focal deficits - Labs pending 02/11/20 01:33 - Labs reviewed. No concerning abnormalities. Trop negative - Pt reports still feeling dizzy. States that she has had tinnitus for several months, but she has not had dizziness until today. She is unable to further qualify the dizziness, stating that she does not feel lightheaded and does not have vertigo. Unclear what she means by "dizzy." CT head to evaluate, possible ataxia 02/11/20 01:49 - Sign out given to Dr Gaspar for the remainder of her ED care. Discussed with Dr Ken Soliz PGY2 Discharge - Discharge Information Problems reviewed: Yes Clinical Impression/Diagnosis: Hypertension Qualifiers: Hypertension type: unspecified Qualified Code(s): I10 - Essential (primary) hypertension - Follow up/Referral Referrals: Matthew Ragland MD [Primary Care Provider] - - Patient Discharge Instructions - Post Discharge Activity
[2020-02-10] MEDS ORDERED: LOSARTAN POTASSIUM 50 MG TABLET (FP) PO ONE (23:52)
[2020-02-11] MEDS ORDERED: LOSARTAN POTASSIUM 50 MG TABLET (FP) ONE (00:06)
--- NOTE | 2020-02-11 00:16 | PDOC ---
Documentation entered by Chanda Montoya SCRIBE, acting as scribe for Daniela Rogers MD. Daniela Rogers MD: This documentation has been prepared by the dimitriosibeTylor Lincy, SCRIBE, under my direction and personally reviewed by me in its entirety. I confirm that the documentation accurately reflects all work, treatment, procedures, and medical decision making performed by me. Attending Attestation - Resident Resident Name: Cadence Soliz - ED Attending Attestation I have performed the following: I have examined & evaluated the patient, The case was reviewed & discussed with the resident, I agree w/resident's findings & plan, Exceptions are as noted - HPI HPI: 02/10/20 23:52 The patient is an 89-year-old female with past medical history HTN, HLD, Arthritis, GERD, and achalasia s/p esophageal dilation who presents to the emergency department with elevated blood pressure. The patient reports she bent down to pull the window up, and then she had an onset of dizziness. The patient states she then checked her blood pressure 3 times, which was noted to be elevated. Denies fever, chills, chest pain, or shortness of breath. Allergies: NKA Past Surgical History: Achalasia ( esophageal dilatation) Left hip ORIF, right knee ORIF s/p comminuted fracture, Cholecystectomy, hysterectomy, appendectomy PCP: Dr. Archer - Physicial Exam PE: 02/11/20 00:13 wnwd ,conversant 89 yo female head ncat nwck supple lungs cta b/l cvs [id number] abd protuberant , nontender extremities pedal edema skin warm and dry neuro axox3,ambulates w cane psych appropriate - Medical Decision Making 02/11/20 01:28 Chest x-ray no change from previous, no infiltrates or effusions appreciated CBC is unremarkable there is no leukocytosis or anemia Chemistries were reviewed electrolytes are within normal limits, there is no transaminitis, troponin is less than 0.02, and she has normal renal function Glucose is equal to 105 02/11/20 01:34 Patient is not a good historian and when questioned about her "" dizziness she stated that she has chronic ringing in her ears but tonight she felt unsteady or weak- will get ct scan of head for further eval 02/11/20 01:36 02/11/20 02:[address] Romero ct scan head pending Discharge - Discharge Information Problems reviewed: Yes Clinical Impression/Diagnosis: Hypertension Qualifiers: Hypertension type: unspecified Qualified Code(s): I10 - Essential (primary) hypertension Condition: Stable Disposition: HOME - Admission No - Follow up/Referral Referrals: Matthew Ragland MD [Primary Care Provider] - - Patient Discharge Instructions Patient Printed Discharge Instructions: DI for High Blood Pressure, How to Monitor Your Blood Pressure at Home Additional Instructions: You were seen in the emergency department for your elevated blood pressure. Please follow up with your primary medical doctor within 1 week after discharge for follow up care. Please call your primary medical doctor this morning (02/11/2020) to follow up on medications for your high blood pressure. Please return to the emergency department if you have worsening symptoms or new concerning symptoms. Thank you. - Post Discharge Activity
[2020-02-11 01:01] LABS: BASO % 1.7 % (0-2.0); EOS % 4.9 % (0-4.5); HEMATOCRIT 40.5 % (32.4-45.2); HEMOGLOBIN 13.4 GM/dL (10.7-15.3); LYMPH % 30.6 % (8-40); MCH 30.3 pg (25.7-33.7); MCHC 33.1 g/dl (32.0-36.0); MEAN CELL VOLUME 91.6 fl (80-96); MEAN PLT VOLUME 9.5 fl (7.5-11.1); MONO % 7.5 % (3.8-10.2); NEUT % 55.3 % (42.8-82.8); PLATELET COUNT 198 K/MM3 (134-434); RBC 4.41 M/mm3 (3.60-5.2); RDW 13.3 % (11.6-15.6); WHITE BLOOD COUNT 5.3 K/mm3 (4.0-10.0)
[2020-02-11 01:09] LABS: INR 1.01 (0.83-1.09); PROTHROMBIN TIME (PATIENT) 11.9 SEC (9.7-13.0)
[2020-02-11 01:22] LABS: ALK PHOS 76 U/L (45-117); ANION GAP 9 MMOL/L (8-16); BILIRUBIN,TOTAL 0.4 mg/dL (0.2-1); BLOOD UREA NITROGEN 14.5 mg/dL (7-18); CHLORIDE 104 mmol/L (98-107); CO2 27 mmol/L (21-32); CREATININE 0.7 mg/dL (0.55-1.3); GLUCOSE,RANDOM 105 mg/dL (74-106); MAGNESIUM 2.1 mg/dL (1.8-2.4); POTASSIUM 4.2 mmol/L (3.5-5.1); SGOT/AST 18 U/L (15-37); SGPT/ALT 14 U/L (13-61); SODIUM 140 mmol/L (136-145); TOT PROT 7.2 g/dl (6.4-8.2)
[2020-02-11 01:25] VITALS: TEMP 98.2
--- NOTE | 2020-02-11 02:10 | PDOC ---
*Physical Exam - Vital Signs Last Vital Signs Temp Pulse Resp BP Pulse Ox 98.2 F 82 17 165/85 98 02/11/20 01:23 02/11/20 01:23 02/11/20 01:23 02/11/20 01:23 02/11/20 01:23 - Physical Exam 02/11/20 02:57 Patient was received at sign out by Dr. Soliz ED Treatment Course - LABORATORY CBC & Chemistry Diagram: 02/11/20 00:41 02/11/20 00:41 - ADDITIONAL ORDERS Additional order review: Laboratory Results 02/11/20 02/11/20 00:41 00:41 PT with INR 11.90 INR 1.01 PTT (Actin FS) 36.7 H Sodium 140 Potassium 4.2 Chloride 104 Carbon Dioxide 27 Anion Gap 9 BUN 14.5 Creatinine 0.7 Est GFR (CKD-EPI)AfAm 89.66 Est GFR (CKD-EPI)NonAf 77.36 Random Glucose 105 Calcium 9.0 Magnesium 2.1 Total Bilirubin 0.4 AST 18 ALT 14 Alkaline Phosphatase 76 Creatine Kinase 106 Troponin I < 0.02 Total Protein 7.2 Albumin 3.0 L 02/11/20 00:41 RBC 4.41 MCV 91.6 MCHC 33.1 RDW 13.3 MPV 9.5 Neutrophils % 55.3 Lymphocytes % 30.6 Monocytes % 7.5 Eosinophils % 4.9 H Basophils % 1.7 - RADIOLOGY Radiology Studies Ordered: Category Date Time Status HEAD CT WITHOUT CONTRAST [CT] Stat CT Scan 02/11/20 01:36 Taken - Medications Given in the ED: ED Medications Discontinued Medications Generic Name Dose Route Start Last Admin Trade Name Freq PRN Reason Stop Dose Admin Losartan Potassium 50 mg 02/10/20 23:52 02/11/20 00:15 Cozaar - PO 02/10/20 23:53 50 mg ONCE ONE Administration Medical Decision Making - Medical Decision Making 02/11/20 02:57 Patient was re-assessed. The patient's CT was negative for actue intracranial processes Patient presented with dizziness that resolved and the patient feels well. She states her dizziness began earlier in the night at approximately 8-9 pm. The patient stated that she did not have chest pain or shortness of breath. Denies palpitations and lightheadedness. The patient likely is not have ACS given her reassuring troponin check which was <0.02 and EKG showing no ST elevation or depression. Noted to have 1st degree AV block of 300 ms. The patient's previous EKG shows 1st degree AV block as well. The patient was able to ambulate throughout the department with her cane (at baseline). Denies continuation of dizziness and states she is symptom free. The patient understands the need to restart her anti-hypertensive medications. The patient to be discharged back home. It was advised to the patient to call her PMD this morning to follow up on anti-HTN medications. The patient states she will call in the morning today. Dispo: Discharge 02/11/20 07:30 Received a call from radiology indicated there is a suspicious mass on xray. I relayed the findings to the patient by calling their cell phone. I spoke to the patient and stated they needed to follow up with their primary medical doctor a nd have a CT within the next 1 month. The patient understood and accepted the plan. Discharge - Discharge Information Problems reviewed: Yes Clinical Impression/Diagnosis: Hypertension Qualifiers: Hypertension type: unspecified Qualified Code(s): I10 - Essential (primary) hypertension Condition: Stable Disposition: HOME - Admission No - Follow up/Referral Referrals: Matthew Ragland MD [Primary Care Provider] - - Patient Discharge Instructions Patient Printed Discharge Instructions: DI for High Blood Pressure, How to Monitor Your Blood Pressure at Home Additional Instructions: You were seen in the emergency department for your elevated blood pressure. Please follow up with your primary medical doctor within 1 week after discharge for follow up care. Please call your primary medical doctor this morning (02/11/2020) to follow up on medications for your high blood pressure. Please return to the emergency department if you have worsening symptoms or new concerning symptoms. Thank you. - Post Discharge Activity
[2020-02-11 03:47] VITALS: BP 155/66; PULSE 78
[2020-02-11 08:58] LABS: ACTIVATED PTT 36.8 SECONDS (25.2-36.5)
--- NOTE | 2020-02-11 10:19 | EKG ---
Test Reason : Blood Pressure : / mmHG Vent. Rate : 080 BPM Atrial Rate : 080 BPM P-R Int : 300 ms QRS Dur : 088 ms QT Int : 386 ms P-R-T Axes : 071 -18 016 degrees QTc Int : 445 ms SINUS RHYTHM WITH 1ST DEGREE A-V BLOCK MODERATE VOLTAGE CRITERIA FOR LVH, MAY BE NORMAL VARIANT BORDERLINE ECG WHEN COMPARED WITH ECG OF 04-OCT-2017 14:08, PREMATURE VENTRICULAR COMPLEXES ARE NO LONGER PRESENT NONSPECIFIC T WAVE ABNORMALITY NO LONGER EVIDENT IN ANTERIOR LEADS Confirmed by Saritha Vargas ([id number]) on 02/11/2020 10:18:52 AM Referred By: Confirmed By:Saritha Vargas
== END 2020-02-11 03:40 | disposition home or self-care (01) ==
LOC: JER 23:16
DX: I10 Essential (primary) hypertension (principal); E78.5 Hyperlipidemia, unspecified; K21.9 Gastro-esophageal reflux disease without esophagitis; M12.9 Arthropathy, unspecified; Z87.19 Personal history of other diseases of the digestive system; R91.8 Other nonspecific abnormal finding of lung field; Z88.0 Allergy status to penicillin
CPT/HCPCS: 36415; 70450-TC; 71046-TC-FY; 80053; 82550; 83735; 84484; 85025; 85610; 85730; 93005; 93010; 99285-25